=== PATIENT | female | born 1950 ===

== ENCOUNTER 2018-05-14 11:37 | Emergency (ER) | payer MEDICARE, MEDICAID ==
[2018-05-14 11:48] VITALS: BMI 30.1
[2018-05-14 11:50] VITALS: O2SAT 98
[2018-05-14] MEDS ORDERED: Oxycodone/Acetaminophen 5/325 mg Tab PO STA (12:35)
[2018-05-14] MEDS ORDERED: Oxycodone/Acetaminophen 5/325 mg Tab ONE (12:50)
--- NOTE | 2018-05-14 13:21 | ED PDOC ---
Upper Extremity Pain/Injury Time Seen by Provider: 05/14/18 12:15 Chief Complaint (Nursing): Upper Extremity Problem/Injury Chief Complaint (Provider): right hand and right ribs History Per: Patient History/Exam Limitations: no limitations Onset/Duration Of Symptoms: Days (yesterday) Current Symptoms Are (Timing): Still Present Additional Complaint(s): Milly Landa is a 67 year old female, with a past medical history of diabetes and HTN, who presents to the emergency department with daughter due to pain to right hand and right ribs s/p mechanical fall yesterday. Patient doesn't remember how it happened but thinks she tripped while walking. She denies any dizziness before the accident and states a bystander helped pick her up from the ground. Patient was able to carry on with her day but daughter made her come when she noticed hand was more swollen. She denies any LOC, head injuries or other medical complaints. PMD: Braeden Valle Past Medical History Reviewed: Historical Data, Nursing Documentation, Vital Signs Vital Signs: Last Vital Signs Temp 98 F 05/14/18 11:48 Pulse 68 05/14/18 11:48 Resp 16 05/14/18 11:48 BP 149/75 05/14/18 11:48 Pulse Ox 98 05/14/18 11:48 - Medical History PMH: Diabetes, HTN, Hypercholesterolemia Denies: Chronic Kidney Disease - Surgical History Surgical History: Appendectomy, Cholecystectomy, (Most recent surgery that patient had, was 31 yrs ago) - Family History Family History: States: Unknown Family Hx - Social History Current smoker - smoking cessation education provided: No Alcohol: None Drugs: Denies - Home Medications Home Medications: Ambulatory Orders Medication Instructions Recorded Metformin HCl [Metformin] 1,000 mg PO BID 03/01/15 Pregabalin [Lyrica] 50 mg PO BID 03/29/15 Albuterol/Ipratropium [Combivent 1 puff IH Q6H #1 inhaler 05/08/17 Respimat] Aspirin [Ecotrin] 81 mg PO DAILY 05/08/17 Atorvastatin [Lipitor] 20 mg PO HS 05/08/17 Azithromycin [Z-Nathaniel] 250 mg PO DAILY #6 tab 05/08/17 Guaifenesin/Pseudoephedrne HCl 1 each PO Q12H PRN #20 tab.er.12h 05/08/17 [Mucinex D ER 600-60 mg Tablet] Levocetirizine Dihydrochloride 5 mg PO DAILY 05/08/17 [Xyzal] Lisinopril [Zestril] 10 mg PO DAILY 05/08/17 hydroCHLOROthiazide [Hydrodiuril] 25 mg PO DAILY 05/08/17 - Allergies Allergies/Adverse Reactions: Allergies Allergy/AdvReac Type Severity Reaction Status Date / Time No Known Allergies Allergy Verified 05/08/17 15:38 Review of Systems ROS Statement: Except As Marked, All Systems Reviewed And Found Negative Musculoskeletal: Positive for: Arm Pain (right arm), Other (right ribs) Neurological: Negative for: Dizziness, Other (LOC) Physical Exam - Reviewed Nursing Documentation Reviewed: Yes Vital Signs Reviewed: Yes - Physical Exam Appears: Positive for: No Acute Distress Head Exam: Positive for: ATRAUMATIC, NORMAL INSPECTION, NORMOCEPHALIC Skin: Positive for: Normal Color, Warm, Dry Eye Exam: Positive for: Normal appearance, EOMI, PERRL Neck: Positive for: Normal, Painless ROM Cardiovascular/Chest: Positive for: Regular Rate, Rhythm, Other (Tenderness to palpation over the right side axillary ribs. No visible edema or ecchymosis over the ribs). Negative for: Murmur Respiratory: Positive for: Normal Breath Sounds (clear bilaterally). Negative for: Respiratory Distress Gastrointestinal/Abdominal: Positive for: Normal Exam, Soft. Negative for: Ten derness, Other (ecchymosis) Back: Positive for: Normal Inspection. Negative for: L CVA Tenderness, R CVA Tenderness, Vertebral Tenderness Extremity: Positive for: Normal ROM (full ROM of fingers), Swelling (over the dorsal right hand). Negative for: Tenderness (or swelling over other parts of the arm), Deformity Neurologic/Psych: Positive for: Alert, Oriented, Gait (ambulatory w/o deficits). Negative for: Motor/Sensory Deficits - ECG O2 Sat by Pulse Oximetry: 98 (RA) Pulse Ox Interpretation: Normal Medical Decision Making Medical Decision Making: Time: 12:15 Initial Impression: bony injury to right hand and right ribs. X-rays, percocet for pain control and reassess patient. Initial Plan: --Percocet 5/325 mg tab 1 tab PO --Forearm right [RAD] --Hand right 3 views [RAD] --Ribs Bilateral W/PA Chest [RAD] --Reevaluation 13:41 Ribs X-Ray FINDINGS: RIGHT RIBS: No fracture or focal lesion visualized. LEFT RIBS: No fracture or focal lesion visualized. LUNGS: Lung jasmine are stable from the recent examination. There is a rounded nodular density in the left lower lobe which is also probably unchanged.. No new infiltrate or CHF is noted. PLEURA: No pneumothorax or pleural fluid. CARDIOVASCULAR: Stable cardiac size. No pulmonary vascular congestion. Mild calcific atherosclerotic change is suspected. OTHER FINDINGS: None. IMPRESSION: No appreciable pneumothorax or infiltrate. No pneumothorax or effusion. Stable small left lower lobe nodular density when compared to multiple prior studies 13:56 Forearm X-Ray FINDINGS: BONES: No fracture is seen. No periosteal reaction is noted. Right elbow is unremarkable. Distal radius is intact. Evaluation of the carpal bones is limited by overlap. JOINT SPACES: No dislocation OTHER FINDINGS: None. IMPRESSION: Unremarkable radiographs of the right forearm. 14:04 Hand X-Ray FINDINGS: BONES: Three views of the right hand were performed. No fracture is seen. No lytic process is noted. No phalangeal dislocation is seen. Mild degenerative changes are seen without erosion. Carpal bones are within normal limits. Radius and distal ulna are intact. JOINTS: Very mild degenerative changes without erosion. SOFT TISSUES: Diffuse soft tissue swelling, nonspecific. OTHER FINDINGS: None. IMPRESSION: Swollen right hand. No fracture or plain film evidence of infection. Time: 1406 --Images show no abnormalities. Patient to be discharged home and given Tylenol for pain. Patient advised to follow up with PMD in 1-2 days. Scribe Attestation: Documented by Noel Gill, acting as a scribe for Danielle Casarez MD. Provider Scribe Attestation: All medical record entries made by the Scribe were at my direction and personally dictated by me. I have reviewed the chart and agree that the record accurately reflects my personal performance of the history, physical exam, medical decision making, and the department course for this patient. I have also personally directed, reviewed, and agree with the discharge instructions and disposition. Disposition - Clinical Impression Clinical Impression: Contusion shoulder/arm - Disposition Disposition Time: 14:06 Condition: IMPROVED Additional Instructions: The xrays show no broken bones or other injury. Take Tylenol as needed for pain. Follow up with primary medical doctor as needed. Forms: [employer] (Kyrgyz), [employer] (Samoan) Print Language: MACEDONIAN
--- NOTE | 2018-05-14 13:45 | RAD ---
Date of service: 05/14/2018 PROCEDURE: Radiographs of the chest and bilateral ribs HISTORY: pain to ribs after fall COMPARISON: 05/08/2017, 2013, 2012 TECHNIQUE: Frontal radiograph of the chest and multiple oblique radiographs of the bilateral ribs were obtained. FINDINGS: RIGHT RIBS: No fracture or focal lesion visualized. LEFT RIBS: No fracture or focal lesion visualized. LUNGS: Lung jasmine are stable from the recent examination. There is a rounded nodular density in the left lower lobe which is also probably unchanged.. No new infiltrate or CHF is noted. PLEURA: No pneumothorax or pleural fluid. CARDIOVASCULAR: Stable cardiac size. No pulmonary vascular congestion. Mild calcific atherosclerotic change is suspected. OTHER FINDINGS: None. IMPRESSION: No appreciable pneumothorax or infiltrate. No pneumothorax or effusion. Stable small left lower lobe nodular density when compared to multiple prior studies
--- NOTE | 2018-05-14 14:00 | RAD ---
PROCEDURE: Radiographs of the Right Forearm HISTORY: pain after fall COMPARISON: None available. TECHNIQUE: Frontal and lateral views obtained. FINDINGS: BONES: No fracture is seen. No periosteal reaction is noted. Right elbow is unremarkable. Distal radius is intact. Evaluation of the carpal bones is limited by overlap. JOINT SPACES: No dislocation OTHER FINDINGS: None. IMPRESSION: Unremarkable radiographs of the right forearm.
--- NOTE | 2018-05-14 14:08 | RAD ---
PROCEDURE: Right Hand Radiographs. HISTORY: pain and swelling to hand COMPARISON: None. FINDINGS: BONES: Three views of the right hand were performed. No fracture is seen. No lytic process is noted. No phalangeal dislocation is seen. Mild degenerative changes are seen without erosion. Carpal bones are within normal limits. Radius and distal ulna are intact. JOINTS: Very mild degenerative changes without erosion. SOFT TISSUES: Diffuse soft tissue swelling, nonspecific. OTHER FINDINGS: None. IMPRESSION: Swollen right hand. No fracture or plain film evidence of infection.
[2018-05-14 15:04] VITALS: BP 128/78; PULSE 80; RESP 19; TEMP 97.5
== END 2018-05-14 15:12 | disposition home or self-care (01) ==
LOC: H.ER 11:37
DX: S40.011A Contusion of right shoulder, initial encounter (principal); M79.601 Pain in right arm; W19.XXXA Unspecified fall, initial encounter; Y92.89 Other specified places as the place of occurrence of the external cause; E11.9 Type 2 diabetes mellitus without complications; E78.00 Pure hypercholesterolemia, unspecified; I10 Essential (primary) hypertension; Z79.82 Long term (current) use of aspirin; Z79.84 Long term (current) use of oral hypoglycemic drugs